=== PATIENT | female | born 1965 | race Caucasian/White ===

== ENCOUNTER 2023-09-27 09:11 | Emergency (ER) | payer MEDICAID ==
[~2023-09-27] VITALS: Ht 165.1 cm; Wt 56.0 kg
[~2023-09-27 09:11] MED LIST: QUET25TA PO; RISO02 PO
[2023-09-27 09:12] VITALS: TEMP 98.2; O2SAT 100
[2023-09-27 10:17] LABS: BASOPHILS % 0.3 % (0.0-2.0); EOSINOPHILS % 0.3 % (0.0-5.0); HEMATOCRIT. 45.4 % (36.0-48.0); LYMPHOCYTES % 19.2 % (20.0-50.0); MEAN CORPUSCULAR HEMOGLOBIN 30.1 pg (28.0-32.0); MEAN CORPUSCULAR HGB CONC 33.1 g/dL (31.0-37.0); MEAN CORPUSCULAR VOLUME 90.7 fL (81.0-99.0); MEAN PLATELET VOLUME 10.1 fl (7.4-10.4); MONOCYTES % 7.6 % (2.0-8.0); NEUTROPHILS % 72.6 % (40.0-76.0); PLATELET 176 x1000/uL (130-400); RED CELL DISTRIBUTION WIDTH 14.3 % (11.6-14.6); WHITE BLOOD COUNT 9.7 x1000/uL (4.5-11.0)
[2023-09-27 10:31] VITALS: BP 149/84; PULSE 98; RESP 18
[2023-09-27] MEDS: ONDANSETRON 4MG ODT PO ONE (10:31)
[2023-09-27] MEDS: IBUPROFEN 600MG TABLET PO STA (10:31)
[2023-09-27] MEDS: LOPERAMIDE HCL 2MG CAPSULE PO ONE (10:31)
[2023-09-27 10:52] LABS: INR 0.9; PROTHROMBIN TIME 10.3 sec (9.6-11.0)
[2023-09-27 10:55] LABS: ALANINE AMINOTRANSFERASE 10 IU/L (10-49); ALBUMIN 4.4 g/dL (3.2-4.8); ASPARTATE AMINOTRANSFERASE 18 IU/L (<34); BILIRUBIN TOTAL 0.9 mg/dL (0.1-1.0); CALCIUM 9.5 mg/dL (8.7-10.4); CARBON DIOXIDE 24 mEq/L (21-32); CHLORIDE 104 mEq/L (98-107); CREATININE 0.8 mg/dL (0.6-1.0); GLUCOSE 89 mg/dL (70-105); POTASSIUM 4.3 mEq/L (3.5-5.1); PROTEIN TOTAL 7.9 g/dL (6.0-8.3); SODIUM 134 mEq/L (136-145); UREA NITROGEN BLOOD 11 mg/dL (9-23)
[2023-09-27 11:11] LABS: ETHANOL BLOOD < 10 mg/dL (<10)
[2023-09-27 15:02] LABS: CLARITY URINE CLOUDY (CLEAR); COLOR URINE YELLOW (YELLOW); GLUCOSE URINE NEGATIVE (NEGATIVE); KETONES URINE NEGATIVE (NEGATIVE); LEUKOCYTE ESTERASE URINE TRACE (NEGATIVE); NITRITE URINE POSITIVE (NEGATIVE); OCCULT BLOOD URINE NEGATIVE (NEGATIVE); PH URINE 8.5 (4.5-8.0); PROTEIN URINE 1+ (NEGATIVE); SPECIFIC GRAVITY URINE 1.014 (1.005-1.030); UROBILINOGEN URINE 0.2 E.U./dL (0.2-1.0)
[2023-09-27] MEDS ORDERED: IMOD MT (15:08)
[2023-09-27] MEDS ORDERED: NITR-87 MT (15:08)
[2023-09-27] MEDS ORDERED: ONDA4TAB11 PO (15:08)
[2023-09-27 15:13] LABS: BACTERIA URINE 4+; SQUAMOUS EPITHELIAL CELL URINE 3+ /lpf (RARE/1+); TRIPLE PHOSPHATE CRYSTAL URINE 3+ /lpf; WBC URINE 15-25 /hpf (0-2); YEAST URINE NONE SEEN
[2023-09-27 15:15] LABS: RBC URINE 0-2 /hpf (0-2)
[2023-09-27 15:22] LABS: *AMPHETAMINES SCREEN URINE PRESUMPTIVE POSITIVE (NEGATIVE); *BARBITURATES SCREEN URINE NEGATIVE (NEGATIVE); *BENZODIAZEPINES SCREEN URINE NEGATIVE (NEGATIVE); *COCAINE SCREEN URINE NEGATIVE (NEGATIVE); METHADONE URINE SCREEN Neg (NEGATIVE); OPIATES URINE SCREEN NEGATIVE (NEGATIVE)
[2023-09-27 15:23] LABS: CANNABINOID URINE SCREEN NEGATIVE (NEGATIVE); ECSTASY MDMA SCREEN URINE NEGATIVE (NEGATIVE); PHENCYCLIDINE URINE SCREEN PRESUMTIVE POSITIVE (NEGATIVE)
== END 2023-09-27 17:13 | disposition home or self-care (01) ==
LOC: ER 09:11
DX: K52.9 Noninfective gastroenteritis and colitis, unspecified (principal); N39.0 Urinary tract infection, site not specified
CPT/HCPCS: 80053; 80305; 81003; 81025; 80320; 83690; 85025; 85610; 87086; 36415; 99284; Q0162; Z7610 ×2; G0480